=== PATIENT | male | born 1965 | race Caucasian/White ===

== ENCOUNTER 2021-12-26 14:11 | Outpatient (CLI) | payer BC | END 2021-12-26 14:12 | disposition home or self-care (01) | LOC: BICRAD 14:11 | PROVIDERS: ATTEND Student in an Organized Health Care Education/Training Program | DX: M54.2 Cervicalgia (principal); M50.322 Other cervical disc degeneration at C5-C6 level | CPT/HCPCS: 72050 ==

== ENCOUNTER 2022-01-14 08:28 | Outpatient (CLI) | payer BC ==
[2022-01-14 10:39] LABS: #Basophils 0.1 10x3/uL (0.0-0.2); #Eosinphils 0.3 10x3/uL (0.0-0.5); #Monocytes 0.6 10x3/uL (0.0-1.1); #Neutrophils 5.9 10x3/uL (1.5-8.4); %Basophils 0.9 % (0.0-2.0); %Eosinophils 3.3 % (0.0-6.0); %Lymphocytes 25.5 % (18.0-47.0); %Monocytes 6.5 % (0.0-10.0); %Neutrophils 62.9 % (40.0-75.0); Hemoglobin 15.3 g/dL (13.5-17.5); Mean Corpuscular HGB CONC 33.5 g/dL (32.0-36.0); Mean Corpuscular Hemoglobin 28.4 pg (27.0-33.0); Mean Corpuscular Volume 84.8 fl (81.2-95.1); Mean Platelet Volume 10.5 fl (7.4-10.4); Platelet Count 328 10x3/uL (150-450); Red Blood Cell (RBC) Count 5.39 10x6/uL (4.32-5.72); White Blood Cell (WBC) Count 9.4 10x3/uL (3.5-10.5)
[2022-01-14 10:54] LABS: Anion Gap 19 mmol/L (10-20); BUN (Urea Nitrogen) 13 mg/dL (8.4-25.7); Calc. Creatinine Clearance 0 mL/min (70-130); Calcium 9.8 mg/dL (7.8-10.44); Carbon Dioxide 20 mmol/L (22-29); Chloride 99 mmol/L (98-107); Estimated GFR 73; Glucose 243 mg/dL (70-105); Potassium 4.5 mmol/L (3.5-5.1); Sodium 133 mmol/L (136-145)
== END 2022-01-14 08:29 | disposition home or self-care (01) ==
LOC: LABBT 08:28
PROVIDERS: ATTEND Orthopaedic Surgery
DX: Z01.818 Encounter for other preprocedural examination (principal); M23.92 Unspecified internal derangement of left knee
CPT/HCPCS: 71046; 80048; 85025; 93005; 93010

== ENCOUNTER 2022-01-16 05:43 | Day surgery (SDC) | payer BC ==
[2022-01-15 11:58] VITALS: BMI 34.5
[2022-01-16] MEDS ORDERED: fentaNYL Citrate/PF 100 MCG/2 ML SYRINGE ONE (06:35)
[2022-01-16] MEDS ORDERED: Lidocaine 1% (PF) 30 ML VIAL ONE (06:47)
[2022-01-16] MEDS ORDERED: PROPOFOL 20 ML ONE (06:48)
[2022-01-16] MEDS ORDERED: Ropivacaine 0.5% HCl/PF (150 MG/30 ML VIAL) ONE ×2 (07:00→07:14)
[2022-01-16] MEDS ORDERED: Clindamycin/D5W 600 mg/50 ml Premix Bag ONE (07:16)
[2022-01-16] MEDS ORDERED: Ondansetron PF 4 MG/2 ML Vial ONE (07:46)
[2022-01-16] MEDS ORDERED: Dexamethasone 20 MG/5 ML VIAL ONE (07:46)
[2022-01-16] MEDS ORDERED: PROPOFOL 200 MG/20 ML VIAL ONE (07:46)
== END 2022-01-16 11:30 | disposition home or self-care (01) ==
LOC: SDC 05:43
PROVIDERS: ATTEND Orthopaedic Surgery
PROC: 0SBD4ZZ Excision of Left Knee Joint, Percutaneous Endoscopic Approach (ICD-10-PCS; principal; 2022-01-16)
DX: S83.282A Other tear of lateral meniscus, current injury, left knee, initial encounter (principal); M23.8X2 Other internal derangements of left knee; E11.9 Type 2 diabetes mellitus without complications; E78.5 Hyperlipidemia, unspecified; G47.33 Obstructive sleep apnea (adult) (pediatric); M19.90 Unspecified osteoarthritis, unspecified site; F17.290 Nicotine dependence, other tobacco product, uncomplicated; Z79.1 Long term (current) use of non-steroidal anti-inflammatories (NSAID); Z79.84 Long term (current) use of oral hypoglycemic drugs; Z79.899 Other long term (current) drug therapy; Z88.0 Allergy status to penicillin
CPT/HCPCS: J1100; J2001; J2405; J2704; J2795; J3490

== ENCOUNTER 2022-07-30 08:51 | Outpatient (CLI) | payer BC ==
[2022-07-30 10:02] LABS: #Basophils 0.1 10x3/uL (0.0-0.2); #Eosinphils 0.2 10x3/uL (0.0-0.5); #Monocytes 0.6 10x3/uL (0.0-1.1); #Neutrophils 6.5 10x3/uL (1.5-8.4); %Basophils 0.6 % (0.0-2.0); %Eosinophils 2.6 % (0.0-6.0); %Monocytes 6.3 % (0.0-10.0); %Neutrophils 70.1 % (40.0-75.0); Hemoglobin 15.2 g/dL (13.5-17.5); Mean Corpuscular HGB CONC 33.9 g/dL (32.0-36.0); Mean Corpuscular Hemoglobin 28.7 pg (27.0-33.0); Mean Corpuscular Volume 84.5 fl (81.2-95.1); Mean Platelet Volume 9.8 fl (7.4-10.4); Platelet Count 328 10x3/uL (150-450); White Blood Cell (WBC) Count 9.3 10x3/uL (3.5-10.5)
[2022-07-30 10:32] LABS: Anion Gap 18 mmol/L (10-20); BUN (Urea Nitrogen) 17 mg/dL (8.4-25.7); Calc. Creatinine Clearance 0 mL/min (70-130); Calcium 8.8 mg/dL (7.8-10.44); Carbon Dioxide 20 mmol/L (22-29); Chloride 102 mmol/L (98-107); Estimated GFR 83; Glucose 205 mg/dL (70-105); Potassium 4.5 mmol/L (3.5-5.1); Sodium 135 mmol/L (136-145)
== END 2022-07-30 08:52 | disposition home or self-care (01) ==
LOC: LABBT 08:51
PROVIDERS: ATTEND Orthopaedic Surgery
DX: Z01.818 Encounter for other preprocedural examination (principal); S46.011A Strain of muscle(s) and tendon(s) of the rotator cuff of right shoulder, initial encounter
CPT/HCPCS: 71046; 80048; 85025; 93005; 93010

== ENCOUNTER 2022-08-02 08:39 | Day surgery (SDC) | payer OTHER ==
[2022-07-30 09:42] VITALS: BMI 34.2
[2022-08-02] MEDS ORDERED: Acetaminophen 500 MG TAB ONE (09:06)
[2022-08-02] MEDS ORDERED: fentaNYL 50 mcg/mL 1 mL Vial ONE (09:20)
[2022-08-02] MEDS ORDERED: Midazolam HCl 2 mg/2 ml Vial ONE (09:20)
[2022-08-02] MEDS ORDERED: Ropivacaine 0.5% HCl/PF (150 MG/30 ML VIAL) ONE (09:21)
[2022-08-02] MEDS ORDERED: PROPOFOL 200 MG/20 ML VIAL ONE (09:50)
[2022-08-02] MEDS ORDERED: Rocuronium Bromide 10 MG/ML (10ML VIAL) ONE (09:50)
[2022-08-02] MEDS ORDERED: Ondansetron PF 4 MG/2 ML Vial ONE (09:50)
[2022-08-02] MEDS ORDERED: Glycopyrrolate 0.2 MG/ML 5 ML SYRINGE ONE (09:50)
[2022-08-02] MEDS ORDERED: NEOSTIGMINE 3 MG/3 ML SYR 3 MG/3 ML SYRINGE ONE (09:50)
[2022-08-02] MEDS ORDERED: Bupivacaine/Epinephrine 0.25% 30 ML VIAL ONE (09:54)
[2022-08-02] MEDS ORDERED: fentaNYL PF 100 MCG/2 ML SYRINGE ONE (10:00)
[2022-08-02] MEDS ORDERED: Clindamycin/D5W 600 mg/50 ml Premix Bag ONE (10:01)
[2022-08-02] MEDS ORDERED: Zolpidem Tartrate 5 MG TAB PO PRN (10:15)
[2022-08-02] MEDS ORDERED: Ropivacaine 0.2% 550 ML 550 ML NERVE BLCK SCH (10:15)
[2022-08-02] MEDS ORDERED: traMADol HCl 50 MG TAB PO PRN ×2 (10:15)
[2022-08-02] MEDS ORDERED: HYDROcodone/Acetaminophen 5/325 mg Tablet PO PRN ×2 (10:15)
[2022-08-02] MEDS ORDERED: Ondansetron PF 4 MG/2 ML Vial IVP PRN (10:15)
[2022-08-02] MEDS ORDERED: Promethazine HCl 25 MG/ML VIAL IM PRN (10:15)
[2022-08-02] MEDS ORDERED: Ketorolac Tromethamine 30 MG/ML VIAL IVP SCH (12:00)
== END 2022-08-02 14:17 | disposition home or self-care (01) ==
LOC: SDC 08:39
PROVIDERS: ATTEND Orthopaedic Surgery
PROC: 0LQ14ZZ Repair Right Shoulder Tendon, Percutaneous Endoscopic Approach (ICD-10-PCS; principal; 2022-08-02)
PROC: 0LS30ZZ Reposition Right Upper Arm Tendon, Open Approach (ICD-10-PCS; principal; 2022-08-02)
PROC: 0RHJ04Z Insertion of Internal Fixation Device into Right Shoulder Joint, Open Approach (ICD-10-PCS; principal; 2022-08-02)
DX: S46.011A Strain of muscle(s) and tendon(s) of the rotator cuff of right shoulder, initial encounter (principal); S43.431A Superior glenoid labrum lesion of right shoulder, initial encounter; M25.311 Other instability, right shoulder; E11.9 Type 2 diabetes mellitus without complications; E78.5 Hyperlipidemia, unspecified; G47.33 Obstructive sleep apnea (adult) (pediatric); R03.0 Elevated blood-pressure reading, without diagnosis of hypertension; Z87.891 Personal history of nicotine dependence; Z79.84 Long term (current) use of oral hypoglycemic drugs; Z79.899 Other long term (current) drug therapy; Z88.0 Allergy status to penicillin; W11.XXXA Fall on and from ladder, initial encounter
CPT/HCPCS: 36416; A4306; C1713; J2250; J2405; J2704; J2795; J3010; J3490

== ENCOUNTER 2023-04-09 01:20 | Inpatient (IN) | payer BC ==
[2023-04-09] MEDS ORDERED: Morphine 4 MG/ML VIAL ONE (03:43)
[2023-04-09] MEDS ORDERED: Clindamycin/D5W 900 MG in Premix 1 BAG IVPB SCH ×2 (04:00→14:00)
[2023-04-09] MEDS ORDERED: Dextrose 5% in Water 1,000 ML IV PRN (05:56)
[2023-04-09] MEDS ORDERED: HumaLOG 300 UNITS/3 ML VIAL SC PRN (05:56)
[2023-04-09] MEDS ORDERED: Glucagon 1 MG/ML KIT IM PRN (05:56)
[2023-04-09] MEDS ORDERED: Dextrose 50% Abboject 50 ML SYRINGE SLOW IVP PRN (05:56)
[2023-04-09] MEDS ORDERED: Lactated Ringer's 500 ML IV SCH (06:00)
[2023-04-09 06:15] LABS: #Basophils 0.1 thou/uL (0.0-0.2); #Eosinphils 0.4 thou/uL (0.0-0.7); #Neutrophils 11.3 thou/uL (1.40-6.50); %Basophils 0.3 % (0.0-1.0); %Eosinophils 2.7 % (0.0-10.0); %Lymphocytes 12.5 % (21.0-51.0); %Neutrophils 76.8 % (42.0-75.0); Hematocrit 37.5 % (42.0-52.0); Hemoglobin 12.8 g/dL (14.0-18.0); Mean Corpuscular HGB CONC 34.1 g/dL (32.0-36.0); Mean Corpuscular Hemoglobin 28.8 pg (27.0-31.0); Mean Corpuscular Volume 84.5 fl (78.0-98.0); Mean Platelet Volume 9.9 fL (7.4-10.4); Platelet Count 291 10x3/uL (130-400); RBC Distribution Width 11.9 % (11.5-14.5); Red Blood Cell (RBC) Count 4.44 mill/uL (4.70-6.10); White Blood Cell (WBC) Count 14.7 10x3/uL (4.8-10.8)
[2023-04-09 06:31] LABS: Hemoglobin A1c 13.4 % (4.0-6.0)
[2023-04-09 06:37] LABS: Anion Gap 12 mmol/L (10-20); BUN (Urea Nitrogen) 8 mg/dL (8.4-25.7); Calc. Creatinine Clearance 0 mL/min (70-130); Calcium 8.4 mg/dL (7.8-10.44); Carbon Dioxide 24 mmol/L (22-29); Chloride 100 mmol/L (98-107); Estimated GFR 84; Glucose 320 mg/dL (70-105); Potassium 4.2 mmol/L (3.5-5.1); Sodium 132 mmol/L (136-145)
[2023-04-09] MEDS ORDERED: PROPOFOL 20 ML ONE ×2 (06:44→07:18)
[2023-04-09] MEDS ORDERED: fentaNYL 50 mcg/mL 1 mL Vial ONE ×3 (06:45→08:06)
[2023-04-09] MEDS ORDERED: Insulin Regular 300 UNITS/3 ML VIAL ONE (07:11)
[2023-04-09] MEDS ORDERED: Lidocaine 2% PF 100 mg/5 ml Syringe ONE (07:17)
[2023-04-09] MEDS ORDERED: EPINEPHrine 1 MG/ML VIAL ONE (07:24)
[2023-04-09] MEDS ORDERED: Bupivacaine PF 0.5% 30 ML VIAL ONE (07:25)
[2023-04-09] MEDS ORDERED: Lidocaine 2% PF 5 ML VIAL ONE (07:25)
[2023-04-09] MEDS ORDERED: Ibuprofen 600 MG TAB PO PRN (08:04)
[2023-04-09] MEDS ORDERED: traMADol HCl 50 MG TAB PO PRN (08:04)
[2023-04-09] MEDS ORDERED: LevoFLOXacin 750 MG TAB PO SCH (08:15)
[2023-04-09] MEDS ORDERED: Acetaminophen 500 MG TAB PO SCH (08:15)
[2023-04-09] MEDS ORDERED: metroNIDAZOLE 250 MG TAB PO SCH (08:15)
[2023-04-09 09:57] VITALS: BMI 35.3
[2023-04-09] MEDS: metroNIDAZOLE 500 MG TAB PO SCH ×3 (10:06→21:02)
[2023-04-09] MEDS ORDERED: Piperacillin/Tazobactam 4.5 GM in Sodium Chloride 0.9% 100 ML IVPB SCH (12:00)
[2023-04-09] MEDS: Acetaminophen 500 MG TAB PO SCH ×3 (13:17→21:02)
[2023-04-09] MEDS ORDERED: Iopamidol 370 76% 100 ML VIAL ONE (13:18)
[2023-04-09] MEDS: HumaLOG 300 UNITS/3 ML VIAL SC PRN ×2 (13:19→18:10)
[2023-04-09] MEDS: glipiZIDE 5 MG TAB PO SCH (16:35)
[2023-04-09] MEDS ORDERED: Vancomycin (BATCH) 1.5 GM in Premix 1 BAG IVPB SCH (21:00)
[2023-04-10] MEDS: LevoFLOXacin 750 MG TAB PO SCH (05:41)
[2023-04-10] MEDS: glipiZIDE 5 MG TAB PO SCH ×2 (08:11→16:44)
[2023-04-10] MEDS: Acetaminophen 500 MG TAB PO SCH ×4 (08:12→21:03)
[2023-04-10] MEDS: Empagliflozin 25 MG TAB PO SCH (08:12)
[2023-04-10] MEDS: metroNIDAZOLE 500 MG TAB PO SCH ×3 (08:12→21:03)
[2023-04-10] MEDS ORDERED: FLU VACC QS2023-24(6MOS UP)/PF 60 MCG/0.5 ML SYRINGE IM ONE (10:45)
[2023-04-11] MEDS: LevoFLOXacin 750 MG TAB PO SCH (05:22)
[2023-04-11 06:19] LABS: #Basophils 0.1 thou/uL (0.0-0.2); #Eosinphils 0.5 thou/uL (0.0-0.7); #Monocytes 0.7 thou/uL (0.11-0.59); #Neutrophils 7.3 thou/uL (1.40-6.50); %Basophils 0.6 % (0.0-1.0); %Eosinophils 4.4 % (0.0-10.0); %Lymphocytes 19.8 % (21.0-51.0); %Monocytes 6.4 % (0.0-10.0); Hematocrit 41.3 % (42.0-52.0); Hemoglobin 13.3 g/dL (14.0-18.0); Mean Corpuscular HGB CONC 32.2 g/dL (32.0-36.0); Mean Corpuscular Hemoglobin 28.4 pg (27.0-31.0); Mean Corpuscular Volume 88.1 fl (78.0-98.0); Mean Platelet Volume 10.1 fL (7.4-10.4); Platelet Count 396 10x3/uL (130-400); RBC Distribution Width 12.3 % (11.5-14.5); Red Blood Cell (RBC) Count 4.69 mill/uL (4.70-6.10); White Blood Cell (WBC) Count 10.9 10x3/uL (4.8-10.8)
[2023-04-11 06:56] LABS: Anion Gap 17 mmol/L (10-20); BUN (Urea Nitrogen) 9 mg/dL (8.4-25.7); CRP (Inflammatory) 17.99 mg/dL (= or < 0.5); Calc. Creatinine Clearance 130 mL/min (70-130); Calcium 9.2 mg/dL (7.8-10.44); Carbon Dioxide 25 mmol/L (22-29); Chloride 100 mmol/L (98-107); Estimated GFR 82; Glucose 176 mg/dL (70-105); Potassium 3.6 mmol/L (3.5-5.1); Sodium 137 mmol/L (136-145)
[2023-04-11] MEDS: Empagliflozin 25 MG TAB PO SCH (08:15)
[2023-04-11] MEDS: metroNIDAZOLE 500 MG TAB PO SCH ×3 (08:15→20:26)
[2023-04-11] MEDS: Acetaminophen 500 MG TAB PO SCH ×4 (08:15→20:26)
[2023-04-11] MEDS: glipiZIDE 5 MG TAB PO SCH ×2 (08:15→18:01)
[2023-04-12] MEDS: LevoFLOXacin 750 MG TAB PO SCH (06:20)
[2023-04-12] MEDS: glipiZIDE 5 MG TAB PO SCH (07:50)
[2023-04-12] MEDS: Acetaminophen 500 MG TAB PO SCH ×2 (07:50→12:20)
[2023-04-12] MEDS: metroNIDAZOLE 500 MG TAB PO SCH (07:50)
[2023-04-12] MEDS: Empagliflozin 25 MG TAB PO SCH (07:50)
[2023-04-12 11:59] LABS: #Basophils 0.1 thou/uL (0.0-0.2); #Eosinphils 0.4 thou/uL (0.0-0.7); #Monocytes 0.6 thou/uL (0.11-0.59); %Basophils 0.9 % (0.0-1.0); %Eosinophils 4.1 % (0.0-10.0); %Lymphocytes 16.1 % (21.0-51.0); %Monocytes 6.3 % (0.0-10.0); %Neutrophils 69.6 % (42.0-75.0); Hematocrit 43.4 % (42.0-52.0); Hemoglobin 14.4 g/dL (14.0-18.0); Mean Corpuscular HGB CONC 33.2 g/dL (32.0-36.0); Mean Corpuscular Hemoglobin 28.3 pg (27.0-31.0); Mean Corpuscular Volume 85.4 fl (78.0-98.0); Mean Platelet Volume 9.8 fL (7.4-10.4); Platelet Count 440 10x3/uL (130-400); RBC Distribution Width 12.4 % (11.5-14.5); Red Blood Cell (RBC) Count 5.08 mill/uL (4.70-6.10)
[2023-04-12 12:15] VITALS: BP 135/85; TEMP 97.2
[2023-04-12 12:18] LABS: Anion Gap 17 mmol/L (10-20); BUN (Urea Nitrogen) 13 mg/dL (8.4-25.7); Calc. Creatinine Clearance 139 mL/min (70-130); Calcium 9.5 mg/dL (7.8-10.44); Carbon Dioxide 21 mmol/L (22-29); Chloride 103 mmol/L (98-107); Estimated GFR 89; Glucose 113 mg/dL (70-105); Sodium 137 mmol/L (136-145)
== END 2023-04-12 14:09 | disposition home or self-care (01) | DRG 603 ==
LOC: ERS 01:20 → T4-B 06:03
PROVIDERS: ADMIT Specialist; ATTEND Hospitalist
PROC: 0J9B0ZZ Drainage of Perineum Subcutaneous Tissue and Fascia, Open Approach (ICD-10-PCS; principal; 2023-04-09)
DX: L02.215 Cutaneous abscess of perineum (principal); L03.818 Cellulitis of other sites; N45.4 Abscess of epididymis or testis; E11.9 Type 2 diabetes mellitus without complications; G47.33 Obstructive sleep apnea (adult) (pediatric); E11.65 Type 2 diabetes mellitus with hyperglycemia; I10 Essential (primary) hypertension; E66.9 Obesity, unspecified; Z98.890 Other specified postprocedural states; Z88.0 Allergy status to penicillin; Z79.899 Other long term (current) drug therapy; Z98.52 Vasectomy status; Z87.891 Personal history of nicotine dependence
CPT/HCPCS: 36415; 36416; 71045; 74177; 76870; 80048; 80053; 81001; 82805; 83036; 83605; 83690; 83880; 84484; 85025; 86140; 87040; 87070; 87077; 87086; 87186; 87205; 93005; 93976; 96365; 96375; J0171; J1815; J2001; J2270; J2405; J2543; J2704; J3010; J3370; J3490; Q9967; S0020